=== PATIENT | male | born 1930 | race Caucasian/White ===

== ENCOUNTER 2018-01-06 22:04 | Inpatient (IN) | payer OTHER ==
[~2018-01-06] VITALS: Ht 170.2 cm; Wt 64.9 kg
[~2018-01-06 22:04] MED LIST: ALFUZOSIN HCL10 MG PO; ALLOPURINOL100 MG PO; ASPIR-LOW81 MG PO; BENTYL10 MG PO; BENTYL20 MG PO; CENTRUM SILVER1 EAC3 PO; CLOPIDOGREL75 MG PO; COLCRYS0.6 MG PO; COMPAZINE10 MG PO; DICYCLOMINE HCL10 MG PO; DOMPERIDONE1 GM; ERGOCALCIF50000 UNIT PO; FERROUS SULFAT325 MG PO; FIBER THERAPY0.52 GM PO; FINASTERIDE5 MG PO; FISH OIL 1,001000 M2 PO; FISH OIL 1,2001 EAC4; FISH OIL 1,2001 EAC4 PO; FUROSEMIDE20 MG PO; FUROSEMIDE40 MG PO; GLIPIZIDE5 MG PO; GLUCOTROL5 MG PO; IRON 100 PLUS1 EACH PO; IRON325 M1 PO; IRON55 MG PO; LASIX20 MG PO; LASIX40 MG PO; LOPRESSOR25 MG PO; LOPRESSOR50 MG PO; MAGNESIUM GLUCO27 MG PO; METAMUCIL PLUS1 EACH PO; METOPROLOL TART25 MG PO; METOPROLOL TART50 MG PO; OMEPRAZOLE40 M1 PO; PANTOPRAZOLE SO40 MG PO; PEPTO BISMOL262 MG PO; PERCOCET 5/31 TABLET PO; PLAVIX75 MG PO; PRAVACHOL10 MG PO; PRAVASTATIN SOD10 MG PO; PREDNISONE10 MG PO; PROTONIX40 MG PO; REGLAN5 MG PO; TOPROL XL50 MG PO; TRAMADOL HCL50 MG PO; ULTRAM50 MG PO; UROXATRAL10 MG PO; VEGETABLE PO; ZITHROMAX500 MG PO; ZOFRAN4 MG PO; ZYLOPRIM100 MG PO
[2018-01-06 22:47] LABS: HEMATOCRIT 38.1 % (38.0-50.0); HEMOGLOBIN 12.6 G/DL (12.5-16.6); MCH 31.9 PG (29.0-34.0); MCHC 33.1 G/DL (30.0-36.0); MCV 96.5 FL (86-99); PLATELET COUNT 164 K/uL (156-360); RBC DIS.WIDTH-CV 14.2 % (11.8-14.6); RBC DIS.WIDTH-SD 50.1 % (39-53); RED BLOOD COUNT 3.95 M/uL (4.00-5.50); WHITE BLOOD COUNT 9.9 K/uL (4.1-10.2)
[2018-01-06 22:54] LABS: INTER. NORMALIZED RATIO 1.1
[2018-01-06 22:56] LABS: PTT 28.9 SEC (25-37)
[2018-01-06 22:57] LABS: ALBUMIN 3.6 g/dL (3.2-4.8); CHLORIDE 111 mEq/L (99-109); POTASSIUM 3.6 mEq/L (3.7-5.4); SODIUM 143 mEq/L (136-147)
[2018-01-06 22:59] LABS: GLUCOSE 156 mg/dL (70-99)
[2018-01-06 23:00] LABS: TOTAL PROTEIN 6.1 g/dL (6.4-8.3)
[2018-01-06 23:01] LABS: TOTAL BILIRUBIN 0.4 mg/dL (0.0-1.0)
[2018-01-06 23:03] LABS: ALKALINE PHOSPHATASE 129 IU/L (3-129); CREATININE 1.5 mg/dL (0.6-1.3); GFR ESTIMATE (CALCULATED) 47 mL/min/ (58.99-99999)
[2018-01-06 23:04] LABS: UREA NITROGEN (BUN) 20 mg/dL (9-23)
[2018-01-06 23:05] LABS: AST (GOT) 32 IU/L (2-34)
[2018-01-06 23:06] LABS: ALT (GPT) 18 IU/L (3-49); LIPASE 65 U/L (1.0-51.0)
[2018-01-06 23:12] LABS: TROP-I INTERPRETATION NEGATIVE; TROPONIN-I 0.02 ng/mL (0.0-0.30)
[2018-01-07] VITALS (8 sets, daily range): BP systolic 95–146; BP diastolic 43–84
[2018-01-07 18:01] LABS: HEMATOCRIT 37.9 % (38.0-50.0); HEMOGLOBIN 12.3 G/DL (12.5-16.6); MCH 31.2 PG (29.0-34.0); MCHC 32.5 G/DL (30.0-36.0); MCV 96.2 FL (86-99); PLATELET COUNT 178 K/uL (156-360); RBC DIS.WIDTH-CV 14.2 % (11.8-14.6); RBC DIS.WIDTH-SD 50.4 % (39-53); RED BLOOD COUNT 3.94 M/uL (4.00-5.50); WHITE BLOOD COUNT 6.8 K/uL (4.1-10.2)
[2018-01-07 18:32] LABS: CHLORIDE 112 MEQ/L (99-109); CREATININE 1.5 MG/DL (0.6-1.3); GFR ESTIMATE (CALCULATED) 47 mL/min/ (58.99-99999); PHOSPHORUS 3.8 mg/dL (2.5-4.9); SODIUM 144 MEQ/L (136-147); UREA NITROGEN (BUN) 25 mg/dL (9-23)
[2018-01-07 18:35] LABS: GLUCOSE 93 mg/dL (70-99); MAGNESIUM 0.9 mg/dl (1.3-2.7); POTASSIUM 5.1 MEQ/L (3.7-5.4)
[2018-01-08] VITALS (13 sets, daily range): BP systolic 90–152; BP diastolic 37–72
[2018-01-08 06:17] LABS: HEMATOCRIT 32.7 % (38.0-50.0); HEMOGLOBIN 10.6 G/DL (12.5-16.6); MCH 31.3 PG (29.0-34.0); MCHC 32.4 G/DL (30.0-36.0); MCV 96.5 FL (86-99); PLATELET COUNT 145 K/uL (156-360); RBC DIS.WIDTH-CV 14.4 % (11.8-14.6); RBC DIS.WIDTH-SD 50.6 % (39-53); RED BLOOD COUNT 3.39 M/uL (4.00-5.50); WHITE BLOOD COUNT 7.9 K/uL (4.1-10.2)
[2018-01-08 08:18] LABS: TROP-I INTERPRETATION NEGATIVE; TROPONIN-I 0.04 ng/mL (0.0-0.30)
[2018-01-08 08:36] LABS: CHLORIDE 114 mEq/L (99-109); POTASSIUM 4.2 mEq/L (3.7-5.4); SODIUM 142 mEq/L (136-147)
[2018-01-08 08:37] LABS: MAGNESIUM 1.6 mg/dL (1.3-2.7)
[2018-01-08 08:39] LABS: GLUCOSE 60 mg/dL (70-99)
[2018-01-08 08:42] LABS: CREATININE 1.8 mg/dL (0.6-1.3); GFR ESTIMATE (CALCULATED) 38 mL/min/ (58.99-99999)
[2018-01-08 08:43] LABS: UREA NITROGEN (BUN) 27 mg/dL (9-23)
[2018-01-09] VITALS (8 sets, daily range): BP systolic 95–159; BP diastolic 49–87
[2018-01-09 05:39] LABS: HEMATOCRIT 30.9 % (38.0-50.0); HEMOGLOBIN 10.3 G/DL (12.5-16.6); MCH 32.1 PG (29.0-34.0); MCHC 33.3 G/DL (30.0-36.0); MCV 96.3 FL (86-99); PLATELET COUNT 128 K/uL (156-360); RBC DIS.WIDTH-CV 14.5 % (11.8-14.6); RBC DIS.WIDTH-SD 51.4 % (39-53); RED BLOOD COUNT 3.21 M/uL (4.00-5.50); WHITE BLOOD COUNT 10.2 K/uL (4.1-10.2)
[2018-01-09 06:02] LABS: CHLORIDE 109 MEQ/L (99-109); CREATININE 1.8 MG/DL (0.6-1.3); GFR ESTIMATE (CALCULATED) 38 mL/min/ (58.99-99999); GLUCOSE 68 mg/dL (70-99); MAGNESIUM 2.5 mg/dl (1.3-2.7); PHOSPHORUS 3.1 mg/dL (2.5-4.9); POTASSIUM 3.8 MEQ/L (3.7-5.4); SODIUM 138 MEQ/L (136-147); UREA NITROGEN (BUN) 29 mg/dL (9-23)
[2018-01-10] VITALS (7 sets, daily range): BP systolic 121–167; BP diastolic 79–99
[2018-01-10 05:41] LABS: HEMATOCRIT 30.2 % (38.0-50.0); MCH 31.8 PG (29.0-34.0); MCHC 33.1 G/DL (30.0-36.0); MCV 96.2 FL (86-99); PLATELET COUNT 117 K/uL (156-360); RBC DIS.WIDTH-CV 14.3 % (11.8-14.6); RBC DIS.WIDTH-SD 50.1 % (39-53); RED BLOOD COUNT 3.14 M/uL (4.00-5.50); WHITE BLOOD COUNT 9.5 K/uL (4.1-10.2)
[2018-01-10 06:06] LABS: CHLORIDE 111 MEQ/L (99-109); CREATININE 1.4 MG/DL (0.6-1.3); GFR ESTIMATE (CALCULATED) 51 mL/min/ (58.99-99999); GLUCOSE 76 mg/dL (70-99); MAGNESIUM 2.2 mg/dl (1.3-2.7); PHOSPHORUS 2.9 mg/dL (2.5-4.9); POTASSIUM 3.9 MEQ/L (3.7-5.4); SODIUM 140 MEQ/L (136-147); UREA NITROGEN (BUN) 23 mg/dL (9-23)
[2018-01-10 17:59] LABS: APPEARANCE SL.HAZY ((CLEAR)); BILIRUBIN NEGATIVE; BLOOD LARGE; COLOR YELLOW ((YELLOW)); GLUCOSE (STRIP) NEGATIVE; KETONES NEGATIVE; LEUKOCYTES NEGATIVE; NITRITE NEGATIVE; PROTEIN (STRIP) 100; SPECIFIC GRAVITY 1.011 (1.000-1.030); UROBILINOGEN 0.2 MG/DL (0.2-1.0)
[2018-01-10 18:27] LABS: BACTERIA RARE /HPF; EPITHELIAL CELLS NONE SEEN /HPF; MUCUS TRACE /LPF; RED BLOOD CELLS TNTC /HPF (0-5); WHITE BLOOD CELLS 15-20 /HPF (0-5)
[2018-01-11] VITALS (13 sets, daily range): BP systolic 126–166; BP diastolic 65–98
[2018-01-11 05:21] LABS: HEMOGLOBIN 9.8 G/DL (12.5-16.6); MCH 31.6 PG (29.0-34.0); MCHC 32.7 G/DL (30.0-36.0); MCV 96.8 FL (86-99); PLATELET COUNT 113 K/uL (156-360); RBC DIS.WIDTH-SD 49.5 % (39-53); WHITE BLOOD COUNT 6.1 K/uL (4.1-10.2)
[2018-01-11 05:47] LABS: CHLORIDE 115 MEQ/L (99-109); CREATININE 1.2 MG/DL (0.6-1.3); GFR ESTIMATE (CALCULATED) > 59 mL/min/ (58.99-99999); GLUCOSE 94 mg/dL (70-99); MAGNESIUM 2.3 mg/dl (1.3-2.7); PHOSPHORUS 2.6 mg/dL (2.5-4.9); POTASSIUM 4.3 MEQ/L (3.7-5.4); SODIUM 142 MEQ/L (136-147); UREA NITROGEN (BUN) 20 mg/dL (9-23)
[2018-01-12] VITALS (11 sets, daily range): BP systolic 89–168; BP diastolic 49–90
[2018-01-12 05:48] LABS: HEMOGLOBIN 9.9 G/DL (12.5-16.6); MCH 31.5 PG (29.0-34.0); MCV 95.5 FL (86-99); PLATELET COUNT 127 K/uL (156-360); RBC DIS.WIDTH-SD 49.1 % (39-53); RED BLOOD COUNT 3.14 M/uL (4.00-5.50); WHITE BLOOD COUNT 4.8 K/uL (4.1-10.2)
[2018-01-12 06:12] LABS: CHLORIDE 111 MEQ/L (99-109); CREATININE 1.2 MG/DL (0.6-1.3); GFR ESTIMATE (CALCULATED) > 59 mL/min/ (58.99-99999); GLUCOSE 113 mg/dL (70-99); MAGNESIUM 1.8 mg/dl (1.3-2.7); PHOSPHORUS 2.4 mg/dL (2.5-4.9); POTASSIUM 3.9 MEQ/L (3.7-5.4); SODIUM 146 MEQ/L (136-147); UREA NITROGEN (BUN) 15 mg/dL (9-23)
[2018-01-13] VITALS (13 sets, daily range): BP systolic 84–159; BP diastolic 63–102
[2018-01-13 04:59] LABS: HEMATOCRIT 31.3 % (38.0-50.0); HEMOGLOBIN 10.8 G/DL (12.5-16.6); MCH 32.1 PG (29.0-34.0); MCHC 34.5 G/DL (30.0-36.0); MCV 93.2 FL (86-99); PLATELET COUNT 132 K/uL (156-360); RBC DIS.WIDTH-CV 13.7 % (11.8-14.6); RBC DIS.WIDTH-SD 47.1 % (39-53); RED BLOOD COUNT 3.36 M/uL (4.00-5.50); WHITE BLOOD COUNT 5.1 K/uL (4.1-10.2)
[2018-01-13 05:12] LABS: CHLORIDE 112 mEq/L (99-109); POTASSIUM 4.3 mEq/L (3.7-5.4); SODIUM 142 mEq/L (136-147)
[2018-01-13 05:13] LABS: MAGNESIUM 1.6 mg/dL (1.3-2.7)
[2018-01-13 05:15] LABS: GLUCOSE 110 mg/dL (70-99)
[2018-01-13 05:18] LABS: GFR ESTIMATE (CALCULATED) > 59 mL/min/ (58.99-99999)
[2018-01-13 05:19] LABS: UREA NITROGEN (BUN) 11 mg/dL (9-23)
[2018-01-13 05:23] LABS: PHOSPHORUS 2.5 mg/dL (2.5-4.9)
[2018-01-14 04:28] VITALS: BP 147/67
[2018-01-14 05:50] LABS: HEMATOCRIT 32.9 % (38.0-50.0); HEMOGLOBIN 10.7 G/DL (12.5-16.6); MCH 31.1 PG (29.0-34.0); MCHC 32.5 G/DL (30.0-36.0); MCV 95.6 FL (86-99); PLATELET COUNT 154 K/uL (156-360); RBC DIS.WIDTH-CV 13.9 % (11.8-14.6); RBC DIS.WIDTH-SD 48.7 % (39-53); RED BLOOD COUNT 3.44 M/uL (4.00-5.50); WHITE BLOOD COUNT 5.5 K/uL (4.1-10.2)
[2018-01-14 06:23] LABS: CHLORIDE 108 MEQ/L (99-109); GFR ESTIMATE (CALCULATED) > 59 mL/min/ (58.99-99999); GLUCOSE 103 mg/dL (70-99); MAGNESIUM 1.8 mg/dl (1.3-2.7); PHOSPHORUS 2.4 mg/dL (2.5-4.9); POTASSIUM 4.7 MEQ/L (3.7-5.4); SODIUM 142 MEQ/L (136-147); UREA NITROGEN (BUN) 12 mg/dL (9-23)
[2018-01-14 07:23] VITALS: BP 143/83
[2018-01-14 11:31] VITALS: BP 143/63
[2018-01-14 15:31] VITALS: BP 142/65
[2018-01-14 20:07] VITALS: BP 120/63
[2018-01-14 23:36] VITALS: BP 105/71
[2018-01-15 03:48] VITALS: BP 142/63
[2018-01-15 06:01] LABS: HEMATOCRIT 29.4 % (38.0-50.0); HEMOGLOBIN 9.6 G/DL (12.5-16.6); MCH 30.8 PG (29.0-34.0); MCHC 32.7 G/DL (30.0-36.0); MCV 94.2 FL (86-99); PLATELET COUNT 174 K/uL (156-360); RBC DIS.WIDTH-CV 13.8 % (11.8-14.6); RBC DIS.WIDTH-SD 47.7 % (39-53); RED BLOOD COUNT 3.12 M/uL (4.00-5.50); WHITE BLOOD COUNT 5.6 K/uL (4.1-10.2)
[2018-01-15 06:15] LABS: CHLORIDE 105 MEQ/L (99-109); GFR ESTIMATE (CALCULATED) > 59 mL/min/ (58.99-99999); GLUCOSE 75 mg/dL (70-99); MAGNESIUM 1.7 mg/dl (1.3-2.7); PHOSPHORUS 2.5 mg/dL (2.5-4.9); POTASSIUM 4.1 MEQ/L (3.7-5.4); SODIUM 140 MEQ/L (136-147); UREA NITROGEN (BUN) 16 mg/dL (9-23)
[2018-01-15 08:14] VITALS: BP 126/68
[2018-01-15 11:52] VITALS: BP 108/62
[2018-01-15] MEDS ORDERED: SEROQUEL12.5 MG PO (13:27)
== END 2018-01-15 16:47 | DRG 329 ==
LOC: EME 22:04 → SDC 01-07 02:16 → EME 01-07 02:16 → ENRESERV 01-07 02:48 → 2SOUTH 01-07 04:08 → 4WEST 01-07 04:08 → CANRESERV 01-11 20:31 → ENRESERV 01-11 20:31 → 4WEST 01-13 15:50 → ENRESERV 01-13 15:51 → 3EAST 01-13 20:16
PROVIDERS: Emergency Medicine; Physician Assistant; Surgery
DX: K56.50 Intestinal adhesions [bands], unspecified as to partial versus complete obstruction (principal); K63.1 Perforation of intestine (nontraumatic); E87.2 Acidosis; E86.0 Dehydration; Z87.01 Personal history of pneumonia (recurrent); I25.10 Atherosclerotic heart disease of native coronary artery without angina pectoris; E16.2 Hypoglycemia, unspecified; E55.9 Vitamin D deficiency, unspecified; I48.91 Unspecified atrial fibrillation; K58.9 Irritable bowel syndrome, unspecified; N40.0 Benign prostatic hyperplasia without lower urinary tract symptoms; M10.9 Gout, unspecified; I10 Essential (primary) hypertension; G89.29 Other chronic pain; K57.10 Diverticulosis of small intestine without perforation or abscess without bleeding
CPT/HCPCS: 71045; 74018; 74176; 80048; 80053; 81003; 82948; 83605; 83690; 83735; 84100; 84484; 85027; 85610; 85730; 86850; 86900; 86901; 86920; 87040; 87086; 87641; 88307; 93005; 94640; 94640 76; 94799; 97530 GO; 97530 GP; 99202; 99281; 99285; J0330; J0610; J1100; J1170; J1335; J1650; J1885; J1940; J2270; J2405; J2710; J2765; J3010; J3475; J3480; J7030; J7050; J7120; P9047; S0020; S0074